=== PATIENT | female | born 1955 | race Caucasian/White ===

== ENCOUNTER 2019-11-06 13:20 | Outpatient (CLI) | payer BC ==
--- NOTE | 2019-11-06 13:47 | BD ---
BONE DENSITOMETRY USING DEXA: Date: 11/06/19 HISTORY: Postmenopausal screening for osteoporosis. FINDINGS: Lumbar Spine: BMD (g/cm2) L1 0.880 T-Score: -1.0 Z-Score: 0.4 L2 1.001 T-Score: -0.2 Z-Score: 1.3 L3 1.132 T-Score: 0.4 Z-Score: 2.1 L4 0.976 T-Score: -0.8 Z-Score: 0.9 L1-L4 0.997 T-Score: -0.5 Z-Score: 1.1 Femoral Neck: 0.644 T-Score: -1.8 Z-Score: -0.5 Total Femur: 0.835 T-Score: -0.9 Z-Score: 0.2 The 10 year fracture risk for a major osteoporotic fracture is 9.1% and for a hip fracture is 1%. IMPRESSION: Osteopenia. POS: [facility]
== END 2019-11-06 13:21 | disposition home or self-care (01) ==
LOC: BICMAMMO 13:20
PROVIDERS: ATTEND Family Medicine
DX: Z13.820 Encounter for screening for osteoporosis (principal); Z85.3 Personal history of malignant neoplasm of breast; M85.859 Other specified disorders of bone density and structure, unspecified thigh
CPT/HCPCS: 77080